=== PATIENT | male | born 1945 | race Caucasian/White ===

== ENCOUNTER 2016-06-13 12:15 | Observation (INO) ==
[2016-06-13] MEDS ORDERED: Ipratropium/Albuterol Neb 3 ML IH ONE ×2 (12:32→13:54)
[2016-06-13] MEDS ORDERED: Albuterol 2.5 MG/3 ML NEBULIZER IH ONE ×2 (12:32→13:54)
--- NOTE | 2016-06-13 12:36 | Emergency Department Note ---
Disposition Clinical Impression: COPD exacerbation Pneumonia Qualifiers: Pneumonia type: due to Haemophilus influenzae Laterality: right Lung location: lower lobe of lung Qualified Code(s): J14 - Pneumonia due to Hemophilus influenzae Disposition: Admitted As Inpatient Condition: Fair Referrals: Osvaldo Khanna MD [Primary Care Provider] - Time of Disposition: 15:51 SOB HPI - General Time Seen by Provider: 06/13/16 12:20 Source: EMS Mode of arrival: EMS Limitations: altered mental status Nursing Notes Reviewed: Yes Vital Signs Reviewed: Yes - History of Present Illness 71-year-old white male [facility] from the [facility] with sudden onset increased difficulty breathing. No reported fever. No reported chest pain. His O2 saturations were in the 50s in route on BiPAP. The patient is unable to provide any additional history. No additional history was available from the [facility] or EMS. He was given a DuoNeb in route. Pt Subjective Complaint: shortness of breath Onset (ago): Just FACILITY EXAMINER Context: other (History of end-stage COPD) Severity: severe Consistency/Duration: constant Improves with: nothing Worsens with: lying flat Known history of: COPD Associated symptoms: Reports: denies other symptoms Treatment prior to arrival: oxygen, bronchodilator, other (BiPAP) Cough present: No - Related Data Home Medications Medication Instructions Recorded Confirmed Acetaminophen [Tylenol] 325 mg PO Q4HR PRN 02/27/16 06/09/16 Albuterol Sulfate [Proair Hfa] 1 puff IH Q4H 02/27/16 06/09/16 Rivaroxaban [Xarelto] 15 mg PO DAILY 02/27/16 06/09/16 Sertraline [Zoloft] 100 mg PO DAILY 02/27/16 06/09/16 Tiotropium [Spiriva] 18 mcg IH DAILY 02/27/16 06/09/16 Albuterol Neb [Proventil Neb] 2.5 mg IH Q4HR PRN 04/18/16 06/09/16 Cholecalciferol (Vitamin D3) 1,000 unit PO DAILY 04/18/16 06/09/16 [Vitamin D3] Fluticasone/Salmeterol [Advair 1 each IH BID 04/18/16 06/09/16 500-50 Diskus] Magnesium Hydroxide [Milk of 30 ml PO DAILY PRN 04/18/16 06/09/16 Magnesia] Multivit-Min/FA/Lycopen/Lutein 1 each PO DAILY 04/18/16 06/09/16 [Adults 50+ Multivitamin Tablet] Previous Rx's Medication Instructions Recorded Alprazolam [Xanax 1 MG Tablet] 1.5 mg PO QID tablet 04/20/16 PredniSONE 10 mg PO BIDWM 3 Days 04/20/16 Metoprolol XL (24 HR) Succ [Toprol 25 mg PO DAILY 365 Days 06/09/16 Xl] Allergies Allergy/AdvReac Type Severity Reaction Status Date / Time Penicillins [PCN] Allergy Anaphylaxis Verified 06/07/16 15:17 Limitations: ROS unobtainable due to patients medical condition (Patient on BiPAP, severely dyspneic with altered mentation.) Past Medical History - Past Medical History Medical history: Reports: atrial fibrillation, CHF, COPD, GERD, hyperlipidemia, hypertension, other Surgical history: Reports: tracheostomy (And reversal) Psychiatric history: Reports: anxiety - Social History Smoking Status: Former smoker Smokeless Tobacco Status: No Alcohol use: Reports: none Drug use: Reports: none Physical Exam - General Limitations: altered mental status General appearance: in distress (Severe respiratory distress) - Head Head exam: atraumatic, normocephalic - Eye Eye exam: Present: PERRL, EOMI. Absent: scleral icterus, conjunctival injection - ENT ENT exam: normal oropharynx, mucous membranes moist - Neck Neck exam: Present: normal inspection, full ROM, trachea midline, other (JVD). Absent: lymphadenopathy - Chest Chest inspection: Present: normal inspection, symmetric chest wall rise - Respiratory Respiratory exam: Present: respiratory distress, wheezes (Severe bilateral expiratory diffuse), accessory muscle use, prolonged expiratory phase - Cardiovascular Cardiovascular exam: Present: normal rhythm, tachycardia. Absent: systolic murmur, diastolic murmur, gallop - Abdominal Exam Abdominal exam: Present: soft, Non-Tender. Absent: organomegaly, mass - Extremities Exam Extremities exam: Present: normal inspection. Absent: pedal edema - Neurological Exam Neurological exam: Present: other (Lethargic but arousable. All extremities spontaneously.) - Psychiatric Psychiatric exam: Present: agitated, anxious - Skin Skin exam: Present: warm, dry Course - Reevaluation(s) Reevaluation #1: Improved. He is actually on nasal cannula not on his BiPAP at the moment. He is tachypneic and tachycardic, but his O2 saturations are in the low 90s. I think he would benefit from being back on the BiPAP. Additional hand-held nebulizers have been ordered. He will require admission. Time: 14:00 Reevaluation #2: Since being placed on BiPAP his heart rate is down in the 120s. He is resting more comfortably, still to Neck. He is moving air somewhat better. Time: 15:20 Reevaluation #3: Acceptted by Dr. Khanna for admission. Time: 15:49 Vital Signs Respiratory Rate 34 06/13/16 12:56 O2 Sat by Pulse Oximetry 43 L 06/13/16 12:56 Temperature 100.4 F H 06/13/16 14:15 Pulse Rate 133 06/13/16 14:15 Respiratory Rate 28 06/13/16 14:15 Blood Pressure 192/72 06/13/16 14:15 O2 Sat by Pulse Oximetry 96 06/13/16 14:15 Oxygen Delivery Oxygen Delivery Nasal Cannula Shortness of Breath/Dyspnea - Differential Diagnosis Likely: acute exacerbation of chronic obstructive airways disease, congestive heart failure, pneumonia, asthma with exacerbation, pulmonary embolism, pneumothorax, arrhythmia - Lab Data Result diagrams: 06/13/16 12:30 06/13/16 12:30 Lab Results 06/13/16 06/13/16 06/13/16 Range/Units 12:30 12:30 12:30 WBC 17.3 H D (4.3-11.1) K/mcL RBC 3.94 L (4.19-5.50) M/mcL Hgb 11.3 L (12.9-16.9) g/dL Hct 37.6 (37.5-50.1) % MCV 95.4 (83.0-100.0) fL MCH 28.7 (28.0-33.3) pg MCHC 30.1 L (31.6-35.5) g/dL RDW 13.9 (11.5-14.5) % Plt Count 290 (140-400) K/mcL MPV 8.7 L (9.4-12.4) fL Immature Gran % 0.7 (0-4) % Seg Neutrophils % 72.9 % Lymphocytes % 17.3 % Monocytes % 8.4 % Eosinophils % 0.5 % Basophils % 0.2 % Neutrophils # 12.6 H (1.6-8.9) K/mcL Lymphocytes # 3.0 (0.6-4.6) K/mcL Monocytes # 1.5 H (0.0-1.3) K/mcL Eosinophils # 0.1 (0.0-0.6) K/mcL Basophils # 0.0 (0.0-0.2) K/mcL Nucleated RBCs/100 WBC 0.1 H (0) /100 WBC ABG pH (7.32-7.45) pH Units ABG pCO2 (35-45) mmHg ABG pO2 (85-104) mmHg ABG HCO3 (21-27) mEQ/L ABG Total CO2 (20-26) mEq/L ABG O2 Saturation (95-98) % ABG Base Excess (-2.0 to 3.0) mEq/L Respiration Rate Liter Flow L/MIN Blood Gas Modality Inspired O2 % Sodium 143 (136-145) mEq/L Potassium 4.8 H (3.5-4.5) mEq/L Chloride 92 L (98-109) mEq/L Carbon Dioxide 40 H* (19-29) mEq/L BUN 23 (8-26) mg/dL Creatinine 0.90 (0.72-1.25) mg/dL Est GFR ( Amer) > 60 (> 60) Est GFR (Non-Af Amer) > 60 (> 60) BUN/Creatinine Ratio 26 (6-26) Glucose 186 H (70-99) mg/dL Calculated Osmolality 305 H (280-300) Calcium 9.8 (8.6-10.8) mg/dL Total Bilirubin 0.5 (0.2-1.2) mg/dL AST 17 (5-34) Units/L ALT 24 (0-55) Units/L Alkaline Phosphatase 42 (38-126) Units/L Troponin I 0.02 (0-0.03) ng/mL B-Natriuretic Peptide (0-100) pg/mL Serum Total Protein 7.0 (6.0-8.3) g/dL Albumin 3.4 L (3.5-5.0) g/dL Globulin 3.6 H (2.4-3.5) g/dL Albumin/Globulin Ratio 0.9 L (1.1-2.2) 06/13/16 06/13/16 Range/Units 12:30 12:32 WBC (4.3-11.1) K/mcL RBC (4.19-5.50) M/mcL Hgb (12.9-16.9) g/dL Hct (37.5-50.1) % MCV (83.0-100.0) fL MCH (28.0-33.3) pg MCHC (31.6-35.5) g/dL RDW (11.5-14.5) % Plt Count (140-400) K/mcL MPV (9.4-12.4) fL Immature Gran % (0-4) % Seg Neutrophils % % Lymphocytes % % Monocytes % % Eosinophils % % Basophils % % Neutrophils # (1.6-8.9) K/mcL Lymphocytes # (0.6-4.6) K/mcL Monocytes # (0.0-1.3) K/mcL Eosinophils # (0.0-0.6) K/mcL Basophils # (0.0-0.2) K/mcL Nucleated RBCs/100 WBC (0) /100 WBC ABG pH 7.24 L (7.32-7.45) pH Units ABG pCO2 97 H* (35-45) mmHg ABG pO2 31 L* (85-104) mmHg ABG HCO3 41.3 H (21-27) mEQ/L ABG Total CO2 44.3 H (20-26) mEq/L ABG O2 Saturation 45 L (95-98) % ABG Base Excess -2.0 (-2.0 to 3.0) mEq/L Respiration Rate 26 Liter Flow 15 L/MIN Blood Gas Modality Squad BiPAP Inspired O2 100 % Sodium (136-145) mEq/L Potassium (3.5-4.5) mEq/L Chloride (98-109) mEq/L Carbon Dioxide (19-29) mEq/L BUN (8-26) mg/dL Creatinine (0.72-1.25) mg/dL Est GFR ( Amer) (> 60) Est GFR (Non-Af Amer) (> 60) BUN/Creatinine Ratio (6-26) Glucose (70-99) mg/dL Calculated Osmolality (280-300) Calcium (8.6-10.8) mg/dL Total Bilirubin (0.2-1.2) mg/dL AST (5-34) Units/L ALT (0-55) Units/L Alkaline Phosphatase (38-126) Units/L Troponin I (0-0.03) ng/mL B-Natriuretic Peptide 118 H (0-100) pg/mL Serum Total Protein (6.0-8.3) g/dL Albumin (3.5-5.0) g/dL Globulin (2.4-3.5) g/dL Albumin/Globulin Ratio (1.1-2.2) Critical Care Time Critical Care Time: Yes Total Critical Care Time: 30 Attestation: Critical care time includes my initial evaluation, multiple reassessments, review of laboratory, EKG, x-ray, and consultation with the hospitalist for admission. It does not include any procedure time.
[2016-06-13 12:39] LABS: Basophils % 0.2 %; Eosinophils # 0.1 K/mcL (0.0-0.6); Eosinophils % 0.5 %; Hematocrit 37.6 % (37.5-50.1); Hemoglobin 11.3 g/dL (12.9-16.9); Immature Granulocytes % 0.7 % (0-4); Lymphocytes % 17.3 %; Mean Corpuscular HGB Conc 30.1 g/dL (31.6-35.5); Mean Corpuscular Hemoglobin 28.7 pg (28.0-33.3); Mean Corpuscular Volume 95.4 fL (83.0-100.0); Mean Platelet Volume 8.7 fL (9.4-12.4); Monocytes # 1.5 K/mcL (0.0-1.3); Monocytes % 8.4 %; Neutrophils # 12.6 K/mcL (1.6-8.9); Nucleated Red Blood Cells 0.1 /100 WBC (0); Platelet Count 290 K/mcL (140-400); Red Blood Count 3.94 M/mcL (4.19-5.50); Red Cell Distribution Width 13.9 % (11.5-14.5); Segmented Neutrophils % 72.9 %
[2016-06-13 12:51] LABS: ABG PCO2 97 mmHg (35-45); ABG PH 7.24 pH Units (7.32-7.45)
[2016-06-13 12:52] LABS: ABG HCO3 41.3 mEQ/L (21-27); ABG Oxygen Saturation 45 % (95-98); ABG PO2 31 mmHg (85-104); ABG TCO2 44.3 mEq/L (20-26); Blood Gas FiO2 100 %; Blood Gas Liter Flow 15 L/MIN
[2016-06-13 12:53] LABS: Blood Gas Respiration Rate 26
[2016-06-13 12:54] LABS: Alanine Aminotransferase 24 Units/L (0-55); Albumin 3.4 g/dL (3.5-5.0); Albumin/Globulin Ratio 0.9 (1.1-2.2); Alkaline Phosphatase 42 Units/L (38-126); Aspartate Amino Transferase 17 Units/L (5-34); BUN/Creatinine Ratio 26 (6-26); Bilirubin,Total 0.5 mg/dL (0.2-1.2); Blood Urea Nitrogen 23 mg/dL (8-26); Calcium 9.8 mg/dL (8.6-10.8); Chloride 92 mEq/L (98-109); Globulin 3.6 g/dL (2.4-3.5); Glucose 186 mg/dL (70-99); Osmolality,Calculated 305 (280-300); Potassium 4.8 mEq/L (3.5-4.5); Sodium 143 mEq/L (136-145); eGFR For African Americans > 60 (> 60); eGFR For Non-African Americans > 60 (> 60)
[2016-06-13 12:56] LABS: Carbon Dioxide 40 mEq/L (19-29)
[2016-06-13] MEDS ORDERED: Vancomycin 1,000 MG in D5% in Water 250 ML IVPB ONE (13:49)
[2016-06-13] MEDS ORDERED: Levofloxacin 500 MG/100 ML 500 MG/100 ML BAG IVPB ONE (13:49)
--- NOTE | 2016-06-13 14:35 | Electrocardiograph Report ---
Nat Cardiology Test Date: 2016-06-13 Pat Name: Joesph Ramirez Department: [id number] Room: Gender: M Digitizer Operator: [id number] : 1945 Requested By: Tiago Diaz Order Number: [id number] Reading MD: Constantino Starkey DO Measurements Intervals [place] Rate: 139 P: 81 UT: 145 QRS: 78 QRSD: 82 T: 90 QT: 329 QTc: 410 Interpretive Statements Sinus tachycardia with PACs Nonspecific ST-T changes Electronically Signed On 06-13-16 14:34:06 EST by Constantino Starkey DO
[2016-06-13] MEDS ORDERED: Naloxone 0.4 MG/ML INJ IVP PRN (18:53)
[2016-06-13] MEDS ORDERED: Vancomycin 1,250 MG in D5% in Water 250 ML IVPB SCH (18:53)
[2016-06-13] MEDS ORDERED: MethylPREDNISolone 40 MG/ML VIAL IVP ONE (18:53)
[2016-06-13] MEDS: Ipratropium/Albuterol Neb 3 ML IH SCH (19:47)
[2016-06-13] MEDS ORDERED: *HR* LORazepam Oral Conc 2 MG/ML SL PRN (22:38)
[2016-06-13] MEDS ORDERED: Acetaminophen 325 MG TABLET PO PRN (23:14)
[2016-06-13] MEDS ORDERED: Albuterol 2.5 MG/3 ML NEBULIZER IH PRN ×2 (23:14→23:40)
[2016-06-13] MEDS ORDERED: MOM Conc 10 ML UD.LIQ PO PRN (23:14)
[2016-06-13] MEDS: Albuterol 2.5 MG/3 ML NEBULIZER IH SCH (23:46)
[2016-06-14] MEDS: Ipratropium/Albuterol Neb 3 ML IH SCH (00:24)
[2016-06-14] MEDS: Albuterol 2.5 MG/3 ML NEBULIZER IH SCH ×6 (03:52→23:42)
[2016-06-14] MEDS ORDERED: Vancomycin 1,000 MG in D5% in Water 250 ML IVPB ONE (04:00)
[2016-06-14] MEDS: Tiotropium 18 MCG inhalation IH SCH (08:30)
[2016-06-14] MEDS: Budesonide/Formoterol 160/4.5 MDI IH SCH ×2 (08:39→20:49)
[2016-06-14] MEDS ORDERED: Metoprolol XL (24 HR) Succ 25 MG TAB.ER.24H PO SCH ×2 (09:00→15:24)
[2016-06-14] MEDS ORDERED: Levofloxacin 500 MG/100 ML 500 MG/100 ML BAG IVPB SCH (09:00)
[2016-06-14] MEDS: Cholecalciferol (D-3) 1,000 UNIT TABLET PO SCH (09:43)
[2016-06-14] MEDS: Doxycycline 100 MG CAPSULE PO SCH ×2 (09:44→20:15)
[2016-06-14] MEDS: *HR* Rivaroxaban 15 MG TABLET PO SCH (09:44)
[2016-06-14] MEDS: PredniSONE 10 MG TABLET PO SCH ×2 (09:44→18:08)
[2016-06-14] MEDS: Morphine Oral CONC 5 MG/0.25 ML ORAL.SYG PO PRN ×2 (09:53→18:26)
[2016-06-14] MEDS ORDERED: Multivit/Ca/Min/Fe/FA 1 TAB TABLET PO SCH (15:00)
--- NOTE | 2016-06-14 15:11 | Internal Med History&Physical ---
Date of Encounter: 06/14/16 Time of Encounter: 15:40 Assessment and Plan (1) Pneumonia Current visit: Yes Status: Acute He was started on IV Levaquin and vancomycin in the emergency room. IV access has been loss of he has been changed to oral Levaquin and doxycycline. I will add lactobacillus. Prednisone and other respiratory regimen will be continued as at [facility]. He states he wishes to revoke hospice and return to a full CODE STATUS including intubation if necessary. Qualifiers: Pneumonia type: due to unspecified organism Laterality: right Lung location: lower lobe of lung Qualified Code(s): J18.9 - Pneumonia, unspecified organism (2) Atrial fibrillation Current visit: No Status: Chronic Continue Xarelto and metoprolol XL. He remains in normal sinus rhythm at this time Qualifiers: Atrial fibrillation type: paroxysmal Qualified Code(s): I48.0 - Paroxysmal atrial fibrillation (3) Anemia Current visit: No Status: Chronic Anemia testing April 2016 showed no factor deficiency. We will monitor CBC as needed Qualifiers: Anemia type: unspecified type Qualified Code(s): D64.9 - Anemia, unspecified (4) Anxiety Current visit: No Status: Chronic Continue scheduled Xanax Internal Medicine - H&P: HPI Chief complaint: dyspnea Admitted From: Long-term Nursing Facility Plans for Post Hospital Care: Transfer Senior [facility] Facility History of present illness: Mr. Ramirez is a 71 year old male who came to the hospital with complaints of worsening dyspnea at the [facility] over the preceding few days. He was evaluated in emergency room and felt to have exacerbation of COPD with right lower lobe pneumonia. He was admitted to [facility] for ongoing care needs. He was hospitalized at [facility] approximately one week ago with similar complaints. He has known severe COPD and wears oxygen 24/7 at the [facility]. He smoked from age [age] up to 5 packs per day. He had a tracheostomy from [id number] but it has been removed and he now wears oxygen by nasal cannula. He has a BiPAP machine at the [facility] for scheduled and prn use for his severe COPD. He has been seen by a pulmonologists at [facility] but is not considered a candidate for lung reduction surgery or endobronchial valves etc. His last chest CT was October 2014. Past Med Surg Social Fam HX - Past Medical History Medical history: atrial fibrillation, CHF, COPD, GERD, hyperlipidemia, hypertension, other Psychiatric history: anxiety - Past Surgical History Surgical History: tracheostomy - Social History Smoking Status: Former smoker Smokeless Tobacco Status: No Alcohol use: none Drug use: none - Family History Father Adopted: [place]: Joesph Ramirez Family Member Ethnicity: Non- Living Status: Cause of : cerebral hemmorahage Hx Family Cardiac Disorders: No Hx Family Respiratory Disorders: No Hx Family Cancer: No Hx Family GI Disorders: No Hx Family Genitourinary Disorders: No Hx Family Endocrine Disorder: No Hx Family Musculoskeletal Disorders: Yes Hx Family Neuromuscular Disorders: No Hx Family Neurologic Disorders: No Hx Family HEENT Disorders: No Hx Family Autoimmune Disorders: No Hx Family Reproductive Disorders: No Hx Family Psychosocial Disorders: No Hx Family Medical Disorders: No Internal Medicine - H&P: Meds Acetaminophen [Tylenol] 325 mg PO Q4HR PRN 02/27/16 [History] Albuterol Sulfate [Proair Hfa] 1 puff IH Q4H 02/27/16 [History] Rivaroxaban [Xarelto] 15 mg PO DAILY 02/27/16 [History] Sertraline [Zoloft] 100 mg PO DAILY 02/27/16 [History] Tiotropium [Spiriva] 18 mcg IH DAILY 02/27/16 [History] Albuterol Neb [Proventil Neb] 2.5 mg IH Q4HR PRN 04/18/16 [History] Cholecalciferol (Vitamin D3) [Vitamin D3] 1,000 unit PO DAILY 04/18/16 [History] Fluticasone/Salmeterol [Advair 500-50 Diskus] 1 each IH BID 04/18/16 [History] Magnesium Hydroxide [Milk of Magnesia] 30 ml PO DAILY PRN 04/18/16 [History] Multivit-Min/FA/Lycopen/Lutein [Adults 50+ Multivitamin Tablet] 1 each PO DAILY 04/18/16 [History] Alprazolam [Xanax 1 MG Tablet] 1.5 mg PO QID tablet 04/20/16 [Rx] PredniSONE 10 mg PO BIDWM 3 Days 04/20/16 [Rx] Metoprolol XL (24 HR) Succ [Toprol Xl] 25 mg PO DAILY 365 Days 06/09/16 [Rx] Allergies Penicillins [PCN] Allergy (Verified 06/07/16 15:17) Anaphylaxis All Systems PM: A 10-system review of systems was performed and is negative for pertinent findings except as documented above in the HPI. Review of systems: Review of systems from his 06/08/2016 H&P were reviewed and revised as below. Gen. his weight has increased from 65.317 kg at the October 2014 hospitalization to 77.111 kg now Cardiovascular: He has history of hypertension, heart failure, and paroxysmal atrial fibrillation. There is no known [place] DVT or pulmonary embolus. Respiratory: As per history of present illness GI: He has no known disorders of his liver gallbladder or exocrine pancreas : No history of hematuria dysuria or kidney stones Neurologic: No history of large distribution strokes or seizures Endocrine: He has hypogonadism but is not receiving treatment at this time. He has hyperlipidemia but no known thyroid disease or diabetes Hematology/oncology: He had anemia documented at the October 2014 hospitalization with workup showing no factor deficiency. He has no known internal malignancies Psychiatric: He has anxiety and depression Musk skeletal: He has DJD and osteopenia but no known gout. - Constitutional Vitals: Temp Pulse Resp BP Pulse Ox 97.6 F 89 22 131/64 95 06/14/16 10:57 06/14/16 09:20 06/14/16 12:30 06/14/16 10:57 06/14/16 12:30 Exam: Gen.: He is a well-developed overweight male who appears in mild to moderate respiratory distress at present time HEENT: Head is atraumatic and normocephalic. Eyes: EOMI. There is no scleral icterus. Mouth: Mucosa is moist. Neck: Supple and nontender. There is no thyromegaly or adenopathy noted. Heart: Regular without murmurs gallops or ectopics. Lungs: He has markedly diminished breath sounds. Very little air flow is heard bilaterally. Abdomen: Soft and nontender. No masses or guarding are noted. Extremities: There is no cyanosis edema or clubbing noted. Dorsalis pedis and posttibial pulses are trace palpable bilaterally. He has mild DJD changes of his hands. Neurologic: Mental status: He is talkative and a good historian. Cranial nerves : Smile is symmetric. Forehead wrinkles bilaterally. Tongue protrudes midline. EOMI. Motor: There is no pronator drift. Cerebellar: Finger to nose intact bilaterally. Skin: Warm and dry Internal Med - H&P Results - Labs CBC & Chem 7: 06/13/16 12:30 06/13/16 12:30
[2016-06-14] MEDS: Lactobacillus 1 EACH CAP.SPRINK PO SCH (20:15)
[2016-06-15] MEDS: Albuterol 2.5 MG/3 ML NEBULIZER IH SCH ×2 (03:58→09:28)
[2016-06-15 06:22] VITALS: BP 165/73
[2016-06-15 08:57] LABS: Eosinophils % 0.1 %; Hematocrit 33.4 % (37.5-50.1); Hemoglobin 10.6 g/dL (12.9-16.9); Immature Granulocytes % 0.9 % (0-4); Lymphocytes # 0.9 K/mcL (0.6-4.6); Lymphocytes % 9.7 %; Mean Corpuscular HGB Conc 31.7 g/dL (31.6-35.5); Mean Corpuscular Volume 91.5 fL (83.0-100.0); Mean Platelet Volume 9.2 fL (9.4-12.4); Monocytes # 0.7 K/mcL (0.0-1.3); Monocytes % 8.3 %; Neutrophils # 7.2 K/mcL (1.6-8.9); Platelet Count 242 K/mcL (140-400); Red Blood Count 3.65 M/mcL (4.19-5.50); Red Cell Distribution Width 13.6 % (11.5-14.5)
[2016-06-15] MEDS: PredniSONE 10 MG TABLET PO SCH (09:09)
[2016-06-15] MEDS: Lactobacillus 1 EACH CAP.SPRINK PO SCH (09:09)
[2016-06-15] MEDS: Doxycycline 100 MG CAPSULE PO SCH (09:10)
[2016-06-15] MEDS: *HR* Rivaroxaban 15 MG TABLET PO SCH (09:10)
[2016-06-15] MEDS: Cholecalciferol (D-3) 1,000 UNIT TABLET PO SCH (09:10)
[2016-06-15] MEDS: Budesonide/Formoterol 160/4.5 MDI IH SCH (09:29)
[2016-06-15] MEDS: Morphine Oral CONC 5 MG/0.25 ML ORAL.SYG PO PRN (09:35)
--- NOTE | 2016-06-15 09:44 | Discharge Summary ---
Date of Encounter: 06/15/16 Time of Encounter: 09:30 - Discharge Diagnosis (1) Pneumonia Priority: Primary Status: Acute Qualifiers: Pneumonia type: due to unspecified organism Laterality: right Lung location: lower lobe of lung Qualified Code(s): J18.9 - Pneumonia, unspecified organism (2) Atrial fibrillation Priority: Secondary Status: Chronic Qualifiers: Atrial fibrillation type: paroxysmal Qualified Code(s): I48.0 - Paroxysmal atrial fibrillation (3) Anemia Priority: Secondary Status: Chronic Qualifiers: Anemia type: unspecified type Qualified Code(s): D64.9 - Anemia, unspecified (4) Anxiety Priority: Secondary Status: Chronic - Discharge Medications Prescriptions: LORazepam Oral Conc [Ativan Oral Conc] 1 mg SL Q2HR PRN #240 mls PRN Reason: Anxiety Morphine Oral CONC [Roxanol] 10 mg PO Q2HR PRN #240 oral.syg PRN Reason: Pain Doxycycline 100 mg PO BID 3 Days Lactobacillus [Culturelle] 1 each PO BID 3 Days Levofloxacin [Levaquin] 500 mg PO DAILY 3 Days Home Medications: Acetaminophen [Tylenol] 325 mg PO Q4HR PRN 02/27/16 [History] Albuterol Sulfate [Proair Hfa] 1 puff IH Q4H 02/27/16 [History] Rivaroxaban [Xarelto] 15 mg PO DAILY 02/27/16 [History] Sertraline [Zoloft] 100 mg PO DAILY 02/27/16 [History] Tiotropium [Spiriva] 18 mcg IH DAILY 02/27/16 [History] Albuterol Neb [Proventil Neb] 2.5 mg IH Q4HR PRN 04/18/16 [History] Cholecalciferol (Vitamin D3) [Vitamin D3] 1,000 unit PO DAILY 04/18/16 [History] Fluticasone/Salmeterol [Advair 500-50 Diskus] 1 each IH BID 04/18/16 [History] Magnesium Hydroxide [Milk of Magnesia] 30 ml PO DAILY PRN 04/18/16 [History] Multivit-Min/FA/Lycopen/Lutein [Adults 50+ Multivitamin Tablet] 1 each PO DAILY 04/18/16 [History] Alprazolam [Xanax 1 MG Tablet] 1.5 mg PO QID tablet 04/20/16 [Rx] PredniSONE 10 mg PO BIDWM 3 Days 04/20/16 [Rx] Metoprolol XL (24 HR) Succ [Toprol Xl] 25 mg PO DAILY 365 Days 06/09/16 [Rx] Doxycycline 100 mg PO BID 3 Days 06/15/16 [Rx] LORazepam Oral Conc [Ativan Oral Conc] 1 mg SL Q2HR PRN #240 mls 06/15/16 [Rx] Lactobacillus [Culturelle] 1 each PO BID 3 Days 06/15/16 [Rx] Levofloxacin [Levaquin] 500 mg PO DAILY 3 Days 06/15/16 [Rx] Montelukast [Singulair] 10 mg PO DAILY #0 tablet 06/15/16 [Rx] Morphine Oral CONC [Roxanol] 10 mg PO Q2HR PRN #240 oral.syg 06/15/16 [Rx] Allergies/Adverse Reactions: Allergies Penicillins [PCN] Allergy (Verified 06/07/16 15:17) Anaphylaxis Date of admission: 06/13/16 19:06 Primary care physician: Osvaldo Khanna MD - Patient Status Disposition: Transfer SNF Condition: Fair Overall status at discharge: patient is progressing back to baseline - Discharge Instructions Forms: ED Satisfaction Letter - Diet and Activity Activity: resume usual activities as tolerated Diet: advance to your usual diet Hospital course: Mr. Ramirez is a 71 year old male who came to the hospital with complaints of worsening dyspnea at the detention over the preceding few days. He was evaluated in emergency room and felt to have exacerbation of COPD with right lower lobe pneumonia. He was admitted to [facility] for ongoing care needs. Initial orders were written by the emergency room physician. I saw him on June 14 and performed a history and physical. He was started on IV Levaquin and vancomycin in the emergency room. IV access was lost after a few hours and multiple unsuccessful attempts were made to restart the IV. He was changed to oral Levaquin and doxycycline. Lactobacillus was added. Vital signs remained stable and he remained afebrile the last 24 hours of hospitalization. WBC improved to 8.8 on June 15 with 81% segs present. When I saw him on June 15 I felt he was stable for discharge back to [facility] for ongoing care needs. Adjustments were made in his Trilogy machine at the detention for BiPAP use. He will follow with me at [facility]. He will continue with antibiotic and probiotic for 3 additional days after discharge for the right lower lobe pneumonia. - Time Spent with Patient Total time spent providing and/or coordinating discharge services: - Constitutional Vitals: Temp Pulse Resp BP Pulse Ox 98.1 F 83 20 165/73 94 L 06/15/16 06:21 06/15/16 06:21 06/15/16 06:21 06/15/16 06:21 06/15/16 06:21
[2016-06-15] MEDS: Tiotropium 18 MCG inhalation IH SCH (09:50)
--- NOTE | 2016-06-15 09:51 | Physician Discharge Referral ---
ExtendedCare Referral Info Transfer To: [facility] Provider in Charge: Jey Provider in Charge after Transfer: PCP (Jey) - Diagnosis (1) Pneumonia Priority: Primary Status: Acute (2) Atrial fibrillation Priority: Secondary Status: Chronic (3) Anemia Priority: Secondary Status: Chronic (4) Anxiety Priority: Secondary Status: Chronic Prognosis: Fair Aware of Diagnosis: Patient Aware of Prognosis: Patient - Transfer Medications Prescriptions: LORazepam Oral Conc [Ativan Oral Conc] 1 mg SL Q2HR PRN #240 mls PRN Reason: Anxiety Morphine Oral CONC [Roxanol] 10 mg PO Q2HR PRN #240 oral.syg PRN Reason: Pain Doxycycline 100 mg PO BID 3 Days Lactobacillus [Culturelle] 1 each PO BID 3 Days Levofloxacin [Levaquin] 500 mg PO DAILY 3 Days Home Medications: Acetaminophen [Tylenol] 325 mg PO Q4HR PRN 02/27/16 [History] Albuterol Sulfate [Proair Hfa] 1 puff IH Q4H 02/27/16 [History] Rivaroxaban [Xarelto] 15 mg PO DAILY 02/27/16 [History] Sertraline [Zoloft] 100 mg PO DAILY 02/27/16 [History] Tiotropium [Spiriva] 18 mcg IH DAILY 02/27/16 [History] Albuterol Neb [Proventil Neb] 2.5 mg IH Q4HR PRN 04/18/16 [History] Cholecalciferol (Vitamin D3) [Vitamin D3] 1,000 unit PO DAILY 04/18/16 [History] Fluticasone/Salmeterol [Advair 500-50 Diskus] 1 each IH BID 04/18/16 [History] Magnesium Hydroxide [Milk of Magnesia] 30 ml PO DAILY PRN 04/18/16 [History] Multivit-Min/FA/Lycopen/Lutein [Adults 50+ Multivitamin Tablet] 1 each PO DAILY 04/18/16 [History] Alprazolam [Xanax 1 MG Tablet] 1.5 mg PO QID tablet 04/20/16 [Rx] PredniSONE 10 mg PO BIDWM 3 Days 04/20/16 [Rx] Metoprolol XL (24 HR) Succ [Toprol Xl] 25 mg PO DAILY 365 Days 06/09/16 [Rx] Doxycycline 100 mg PO BID 3 Days 01/06/17 [Rx] LORazepam Oral Conc [Ativan Oral Conc] 1 mg SL Q2HR PRN #240 mls 06/15/16 [Rx] Lactobacillus [Culturelle] 1 each PO BID 3 Days 06/15/16 [Rx] Levofloxacin [Levaquin] 500 mg PO DAILY 3 Days 06/15/16 [Rx] Montelukast [Singulair] 10 mg PO DAILY #0 tablet 06/15/16 [Rx] Morphine Oral CONC [Roxanol] 10 mg PO Q2HR PRN #240 oral.syg 06/15/16 [Rx] Allergies/Adverse Reactions: Allergies Penicillins [PCN] Allergy (Verified 06/07/16 15:17) Anaphylaxis - Respiratory Orders Oxygen / L per min (O2 at 5-7 L/m by cannula with use of Trilogy as needed) Smoking Cessation: Smoking cessation has been advised. For more information, call the [employer] Tobacco Quit Line at 3-967-PGOT-NOW. - Advance Directives Code Status: Full Code - Rehabiliation Orders Rehab Potential: Fair CERTIFICATION: I certify that the transfer of the above named patient to an Extended Care Facility is necessary for the continuing treatment of the diagnosis listed. The above information is true and accurate reflection of patient's current condition. Confidential - Redisclosure prohibited without a patient's written consent.
[2016-06-15] MEDS ORDERED: Multivit/Ca/Min/Fe/FA 1 TAB TABLET PO SCH (11:00)
== END 2016-06-15 11:00 ==
LOC: INPPIK 12:28 → EMEROOPIK 12:28 → INPPIK 19:10
PROVIDERS: ADMIT Internal Medicine; ATTEND Internal Medicine

== ENCOUNTER 2016-07-17 06:13 | Inpatient (IN) ==
--- NOTE | 2016-07-17 06:19 | Emergency Department Note ---
Disposition Clinical Impression: Acute exacerbation of chronic obstructive airways disease Acute and chronic respiratory failure Qualifiers: Respiratory failure complication: hypoxia and hypercapnia Qualified Code(s): J96.21 - Acute and chronic respiratory failure with hypoxia Disposition: Admitted As Inpatient Referrals: NO,PCP [Non-Partnered Physician] - Forms: ED Satisfaction Letter SOB HPI - General Chief Complaint: ED Shortness of Breath/Dyspnea Stated Complaint: DIFFICULTY BREATHING Time Seen by Provider: 07/17/16 06:19 Source: patient, EMS Mode of arrival: EMS Limitations: no limitations Nursing Notes Reviewed: Yes Vital Signs Reviewed: Yes - History of Present Illness Patient presents from care home where he is chronically dependent on a Trilogy BiPAP machine for assisted ventilation. He reportedly was oxygenating in the 90-95% range yesterday evening but this morning was found to be desaturated to the 50s and 60s. The squad was called and they have brought him in with assisted ventilation by bag valve mask. He had requested intubation at the care home and has still been conversive. He has had a low-grade fever and occasional cough. His denied any localizing chest pain and he has not been having sputum production. He has not been having vomiting, diarrhea, leg pain or swelling. He is on Xarelto and has been receiving his usual medicines. He is feeling much more comfortable on arrival here with assisted ventilation. His saturations are back up in the 90s, he is demonstrating good respiratory effort he is hypertensive and tachycardic. 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 Denies: chest pain, pain with inspiration, sputum production, orthopnea, lower extremity pain, polyuria, polydipsia, parasthesias, palpitations, hemoptysis, diaphoresis, nausea/vomiting , syncope, abdominal pain, rash Treatment prior to arrival: oxygen, other Cough present: Yes Cough Description: Voluntary (Final) Cough Frequency: Intermittent Sputum production: No - Related Data Home oxygen amount: 4 liters Home Medications Medication Instructions Recorded Confirmed Acetaminophen [Tylenol] 325 mg PO Q4HR PRN 02/27/16 07/17/16 Albuterol Sulfate [Proair Hfa] 1 puff IH Q4H 02/27/16 07/17/16 Rivaroxaban [Xarelto] 15 mg PO DAILY 02/27/16 07/17/16 Sertraline [Zoloft] 100 mg PO DAILY 02/27/16 07/17/16 Tiotropium [Spiriva] 18 mcg IH DAILY 02/27/16 07/17/16 Albuterol Neb [Proventil Neb] 2.5 mg IH Q4HR PRN 04/18/16 07/17/16 Cholecalciferol (Vitamin D3) 1,000 unit PO DAILY 04/18/16 07/17/16 [Vitamin D3] Fluticasone/Salmeterol [Advair 1 each IH BID 04/18/16 07/17/16 500-50 Diskus] Magnesium Hydroxide [Milk of 30 ml PO DAILY PRN 04/18/16 07/17/16 Magnesia] Multivit-Min/FA/Lycopen/Lutein 1 each PO DAILY 04/18/16 07/17/16 [Adults 50+ Multivitamin Tablet] Haloperidol 0.5 mg PO Q2H PRN 07/17/16 07/17/16 Previous Rx's Medication Instructions Recorded Alprazolam [Xanax 1 MG Tablet] 1.5 mg PO QID tablet 04/20/16 PredniSONE 10 mg PO BIDWM 3 Days 04/20/16 Metoprolol XL (24 HR) Succ [Toprol 25 mg PO DAILY 365 Days 06/09/16 Xl] LORazepam Oral Conc [Ativan Oral 1 mg SL Q2HR PRN #240 mls 06/15/16 Conc] Montelukast [Singulair] 10 mg PO DAILY #0 tablet 06/15/16 Morphine Oral CONC [Roxanol] 10 mg PO Q2HR PRN #240 oral.syg 06/15/16 Allergies Allergy/AdvReac Type Severity Reaction Status Date / Time Penicillins [PCN] Allergy Anaphylaxis Verified 06/07/16 15:17 All systems ED: reviewed and negative except as stated. Past Medical History - Past Medical History Attestation: Yes The following information was validated with the patient. Source: patient, old records reviewed, nursing notes reviewed Medical history: Reports: atrial fibrillation (With anticoagulation), CHF, COPD (Chronic respiratory failure with prior hospice status, revoked), GERD, hyperlipidemia, hypertension, other. Denies: DVT, pulmonary embolus Surgical history: Reports: tracheostomy (And reversal) Psychiatric history: Reports: anxiety - Social History Smoking Status: Former smoker Smokeless Tobacco Status: No Alcohol use: Reports: none Drug use: Reports: none Physical Exam - General Limitations: physical limitation General appearance: alert, in distress - Head Head exam: atraumatic, normocephalic, normal inspection - Eye Eye exam: Present: normal appearance, EOMI - ENT ENT exam: normal exam, mucous membranes moist, mucous membranes dry - Neck Neck exam: Present: normal inspection, full ROM, trachea midline - Chest Chest inspection: Present: normal inspection, symmetric chest wall rise. Absent : tenderness - Respiratory Respiratory exam: Present: respiratory distress, wheezes, prolonged expiratory phase. Absent: stridor, accessory muscle use - Cardiovascular Cardiovascular exam: Present: regular rate, normal rhythm, tachycardia, normal heart sounds. Absent: JVD - Abdominal Exam Abdominal exam: Present: soft, Non-Tender, normal bowel sounds. Absent: tenderness, distention, guarding, rebound, rigidity - Extremities Exam Extremities exam: Present: normal inspection, full ROM, normal capillary refill. Absent: tenderness, pedal edema, calf tenderness - Expanded Lower Extremity Exam Neurovascular/Tendon exam: Present: normal capillary refill. Absent: motor deficit, sensory deficit, tendon deficit Gait: not tested/not observed - Neurological Exam Neurological exam: Present: alert. Absent: motor sensory deficit - Psychiatric Psychiatric exam: Present: normal affect, anxious - Skin Skin exam: Present: warm, dry, intact, normal color. Absent: diaphoresis, pallor Course Course Narrative: 0730: Patient's repeat blood gasses demonstrating that he is trending towards his normal ranges for his pH and CO2. Patient is alert, conversive and saturating at 97% on 70% FiO2 on the BiPAP at 20/8. We are continuing to titrate his oxygen down. Current blood pressure is 150/78. His heart rate remains at 130. However awaiting return of labs to discuss the patient's ultimate disposition with Dr. Khanna who knows this patient very well. 0735: Dr. Khanna feels comfortable on admitting the patient to this facility. Verbal orders are obtained and [facility] bed management has been contacted for bed placement. Vital Signs Temperature 100.5 F H 07/17/16 06:14 Pulse Rate 133 07/17/16 06:14 Respiratory Rate 28 07/17/16 06:14 Blood Pressure 173/96 07/17/16 06:14 O2 Sat by Pulse Oximetry 90 L 07/17/16 06:14 Temperature 100.5 F H 07/17/16 06:14 Pulse Rate 133 07/17/16 07:14 Respiratory Rate 24 07/17/16 07:14 Blood Pressure 119/71 07/17/16 07:14 O2 Sat by Pulse Oximetry 94 L 07/17/16 07:14 Oxygen Delivery Oxygen Delivery Bipap Shortness of Breath/Dyspnea - Differential Diagnosis Likely: acute exacerbation of chronic obstructive airways disease, pneumonia, asthma with exacerbation - Medical Records Medical records reviewed: Yes I reviewed the patient's medical records. - Lab Data Lab results reviewed: Yes I reviewed the patient's lab results. Lab results narrative: It appears the patient's normal CO2 is in a range from 60-100 and his pH is generally 7.23-7.3. Result diagrams: 07/17/16 07:05 07/17/16 07:05 Lab Results 07/17/16 07/17/16 07/17/16 Range/Units 06:22 07:05 07:05 WBC 10.2 (4.3-11.1) K/mcL RBC 4.04 L (4.19-5.50) M/mcL Hgb 11.7 L (12.9-16.9) g/dL Hct 39.0 (37.5-50.1) % MCV 96.5 (83.0-100.0) fL MCH 29.0 (28.0-33.3) pg MCHC 30.0 L (31.6-35.5) g/dL RDW 13.8 (11.5-14.5) % Plt Count 274 (140-400) K/mcL MPV 9.3 L (9.4-12.4) fL Immature Gran % 0.7 (0-4) % Seg Neutrophils % 83.3 % Lymphocytes % 12.8 % Monocytes % 2.4 % Eosinophils % 0.6 % Basophils % 0.2 % Neutrophils # 8.5 (1.6-8.9) K/mcL Lymphocytes # 1.3 (0.6-4.6) K/mcL Monocytes # 0.3 (0.0-1.3) K/mcL Eosinophils # 0.1 (0.0-0.6) K/mcL Basophils # 0.0 (0.0-0.2) K/mcL ABG pH 7.15 L* (7.32-7.45) pH Units ABG pCO2 132 H* (35-45) mmHg ABG pO2 89 (85-104) mmHg ABG HCO3 46.3 H (21-27) mEQ/L ABG Total CO2 50.4 H (20-26) mEq/L ABG O2 Saturation 92 L (95-98) % ABG Base Excess 12.3 H (-2.0 to 3.0) mEq/L VBG Lactic Acid (0.5-2.2) mmol/L Respiration Rate Liter Flow 10 L/MIN Blood Gas Modality AMBU Inspired O2 100 % Inspiratory BiPAP cm H2O Expiratory BiPAP cm H2O Sodium 145 (136-145) mEq/L Potassium 4.2 (3.5-4.5) mEq/L Chloride 95 L (98-109) mEq/L Carbon Dioxide 39 H (19-29) mEq/L BUN 26 (8-26) mg/dL Creatinine 0.83 (0.72-1.25) mg/dL Est GFR ( Amer) > 60 (> 60) Est GFR (Non-Af Amer) > 60 (> 60) BUN/Creatinine Ratio 31 H (6-26) Glucose 125 H (70-99) mg/dL Calculated Osmolality 306 H (280-300) Calcium 9.3 (8.6-10.8) mg/dL Troponin I (0-0.03) ng/mL 07/17/16 07/17/16 07/17/16 Range/Units 07:05 07:05 07:15 WBC (4.3-11.1) K/mcL RBC (4.19-5.50) M/mcL Hgb (12.9-16.9) g/dL Hct (37.5-50.1) % MCV (83.0-100.0) fL MCH (28.0-33.3) pg MCHC (31.6-35.5) g/dL RDW (11.5-14.5) % Plt Count (140-400) K/mcL MPV (9.4-12.4) fL Immature Gran % (0-4) % Seg Neutrophils % % Lymphocytes % % Monocytes % % Eosinophils % % Basophils % % Neutrophils # (1.6-8.9) K/mcL Lymphocytes # (0.6-4.6) K/mcL Monocytes # (0.0-1.3) K/mcL Eosinophils # (0.0-0.6) K/mcL Basophils # (0.0-0.2) K/mcL ABG pH 7.23 L (7.32-7.45) pH Units ABG pCO2 106 H* D (35-45) mmHg ABG pO2 104 (85-104) mmHg ABG HCO3 43.9 H (21-27) mEQ/L ABG Total CO2 47.2 H (20-26) mEq/L ABG O2 Saturation 96 (95-98) % ABG Base Excess 12.1 H (-2.0 to 3.0) mEq/L VBG Lactic Acid 1.8 (0.5-2.2) mmol/L Respiration Rate 12 Liter Flow L/MIN Blood Gas Modality BIPAP Inspired O2 100 % Inspiratory BiPAP 20 cm H2O Expiratory BiPAP 8 cm H2O Sodium (136-145) mEq/L Potassium (3.5-4.5) mEq/L Chloride (98-109) mEq/L Carbon Dioxide (19-29) mEq/L BUN (8-26) mg/dL Creatinine (0.72-1.25) mg/dL Est GFR ( Amer) (> 60) Est GFR (Non-Af Amer) (> 60) BUN/Creatinine Ratio (6-26) Glucose (70-99) mg/dL Calculated Osmolality (280-300) Calcium (8.6-10.8) mg/dL Troponin I 0.02 (0-0.03) ng/mL - Radiology Data Radiology results reviewed: Yes I reviewed the patient's radiology results. Single view chest x-ray is performed. This demonstrates hyperinflation and changes consistent with emphysema and COPD. He has some basilar scarring. No dominant infiltrate is noted. This is on my interpretation. Impressions Chest X-Ray 07/17/16 06:25 IMPRESSION: Grossly stable right basilar airspace disease. D/ / Teo Quezada MD / Teo Quezada MD Interpreting Provider: Teo Quezada MD - EKG Data EKG attestation: Yes I reviewed and interpreted this EKG. EKG shows normal: Reports: sinus rhythm, axis, intervals, QRS complexes Rate: Reports: tachycardia (135) Interpretation: Reports: no acute changes, nonspecific ST-T wave changes, other (Significant baseline artifact present.) Critical Care Time Critical Care Time: Yes Total Critical Care Time: 70 Attestation: As this patient did present with signs and symptoms of potential life- threatening illness requiring my urgent intervention, total critical care time in this patient's care has been 70 minutes, not withstanding separately reportable procedures.
[2016-07-17] MEDS ORDERED: 0.9 % Sodium Chloride 500 ML IVC ONE (06:24)
[2016-07-17] MEDS ORDERED: Ipratropium/Albuterol Neb 3 ML IH ONE (06:26)
[2016-07-17 06:31] LABS: ABG HCO3 46.3 mEQ/L (21-27); ABG PCO2 132 mmHg (35-45); ABG PH 7.15 pH Units (7.32-7.45); ABG PO2 89 mmHg (85-104)
[2016-07-17 06:32] LABS: ABG Base Excess 12.3 mEq/L (-2.0 to 3.0); ABG Oxygen Saturation 92 % (95-98); ABG TCO2 50.4 mEq/L (20-26); Blood Gas FiO2 100 %; Blood Gas Liter Flow 10 L/MIN
[2016-07-17 07:14] LABS: Basophils % 0.2 %; Eosinophils # 0.1 K/mcL (0.0-0.6); Eosinophils % 0.6 %; Hemoglobin 11.7 g/dL (12.9-16.9); Immature Granulocytes % 0.7 % (0-4); Lymphocytes # 1.3 K/mcL (0.6-4.6); Lymphocytes % 12.8 %; Mean Corpuscular Volume 96.5 fL (83.0-100.0); Mean Platelet Volume 9.3 fL (9.4-12.4); Monocytes # 0.3 K/mcL (0.0-1.3); Monocytes % 2.4 %; Neutrophils # 8.5 K/mcL (1.6-8.9); Platelet Count 274 K/mcL (140-400); Red Blood Count 4.04 M/mcL (4.19-5.50); Red Cell Distribution Width 13.8 % (11.5-14.5); Segmented Neutrophils % 83.3 %
[2016-07-17 07:26] LABS: ABG PH 7.23 pH Units (7.32-7.45)
[2016-07-17 07:27] LABS: ABG HCO3 43.9 mEQ/L (21-27); ABG PCO2 106 mmHg (35-45); ABG PO2 104 mmHg (85-104); ABG TCO2 47.2 mEq/L (20-26)
[2016-07-17 07:28] LABS: ABG Base Excess 12.1 mEq/L (-2.0 to 3.0); ABG Oxygen Saturation 96 % (95-98); Blood Gas BiPAP(E) 8 cm H2O; Blood Gas BiPAP(I) 20 cm H2O; Blood Gas FiO2 100 %; Blood Gas Respiration Rate 12
[2016-07-17 07:31] LABS: BUN/Creatinine Ratio 31 (6-26); Blood Urea Nitrogen 26 mg/dL (8-26); Calcium 9.3 mg/dL (8.6-10.8); Carbon Dioxide 39 mEq/L (19-29); Chloride 95 mEq/L (98-109); Glucose 125 mg/dL (70-99); Osmolality,Calculated 306 (280-300); Potassium 4.2 mEq/L (3.5-4.5); Sodium 145 mEq/L (136-145); eGFR For African Americans > 60 (> 60); eGFR For Non-African Americans > 60 (> 60)
[2016-07-17] MEDS ORDERED: 0.9 % Sodium Chloride 1,000 ML IVC SCH (08:26)
[2016-07-17] MEDS ORDERED: Acetaminophen 325 MG TABLET PO PRN (08:26)
[2016-07-17] MEDS ORDERED: Ondansetron 4 MG/2 ML VIAL IVP PRN (08:26)
[2016-07-17] MEDS ORDERED: Naloxone 0.4 MG/ML INJ IVP PRN (08:26)
[2016-07-17] MEDS ORDERED: *HR* LORazepam Oral Conc 2 MG/ML SL PRN (08:26)
[2016-07-17] MEDS ORDERED: MOM Conc 10 ML UD.LIQ PO PRN (08:26)
[2016-07-17] MEDS: Metoprolol XL (24 HR) Succ 25 MG TAB.ER.24H PO SCH (09:50)
[2016-07-17] MEDS: *HR* Rivaroxaban 15 MG TABLET PO SCH (09:51)
[2016-07-17] MEDS: Cholecalciferol (D-3) 1,000 UNIT TABLET PO SCH (09:54)
[2016-07-17] MEDS: Ipratropium/Albuterol Neb 3 ML IH SCH ×3 (10:02→21:20)
--- NOTE | 2016-07-17 14:49 | Electrocardiograph Report ---
[address] [address] Test Date: 2016-07-17 Pat Name: Joesph Ramirez Department: [id number] Room: [facility] Gender: Dipper And Baker: : 1945 Requested By: Marshal Hua Order Number: [id number] Reading MD: Nafisa Mosley Measurements Intervals [place] Rate: 135 P: 86 TX: 185 QRS: 80 QRSD: 77 T: 81 QT: 331 QTc: 410 Interpretive Statements SINUS TACHYCARDIA NONSPECIFIC ST \T\ T-WAVE ABNORMALITY ABNORMAL RHYTHM ECG Electronically Signed On 07-17-2016 14:47:53 EST by Nafisa Mosley
--- NOTE | 2016-07-17 15:24 | Internal Med History&Physical ---
Date of Encounter: 07/17/16 Time of Encounter: 15:05 Assessment and Plan (1) Acute and chronic respiratory failure Current visit: Yes Status: Acute He has been placed on BiPAP. Levaquin was started in the emergency room and will be continued. His [place] in regimen from the prison will be continued. He was given a dose of Solu-Medrol but this will not be continued since he does not have active bronchospasm. Qualifiers: Respiratory failure complication: hypoxia and hypercapnia Qualified Code(s) : J96.21 - Acute and chronic respiratory failure with hypoxia; J96.22 - Acute and chronic respiratory failure with hypercapnia (2) Anemia Current visit: No Status: Chronic Anemia testing done 04/19/2016 showed no obvious factor deficiency but serum iron was slightly decreased at 48. I will add ferrous sulfate with vitamin C and see if hemoglobin improves Qualifiers: Anemia type: unspecified type Qualified Code(s): D64.9 - Anemia, unspecified (3) Atrial fibrillation Current visit: No Status: Chronic Continue Xarelto Qualifiers: Atrial fibrillation type: paroxysmal Qualified Code(s): I48.0 - Paroxysmal atrial fibrillation Internal Medicine - H&P: HPI Chief complaint: Dyspnea with hypoxemia Admitted From: Long-term Nursing Facility Plans for Post Hospital Care: Transfer Prison Facility History of present illness: Mr. Ramirez is a 71 year old male who came to the hospital after he was noted to have hypoxemia at the prison. He reportedly had a low-grade fever and occasional cough. He was evaluated in the emergency room and felt to have exacerbation of COPD. He was admitted to [facility] for ongoing care needs. He was hospitalized at [facility] approximately 5 weeks ago with similar complaints. He has known severe COPD and wears oxygen 24/7 at the prison. He smoked from age [age] up to 5 packs per day. He had a tracheostomy from [id number] but it has been removed and he now wears oxygen by nasal cannula. He has a BiPAP machine at the prison for scheduled and prn use for his severe COPD. He has been seen by a pulmonologists at [facility] but is not considered a candidate for lung reduction surgery or endobronchial valves etc. I spoke with his investment banker during his recent hospitalization and we agreed he would not return to [facility]. His last chest CT was October 2014. Past Med Surg Social Fam HX - Past Medical History Medical history: atrial fibrillation, CHF, COPD, GERD, hyperlipidemia, hypertension, other Psychiatric history: anxiety - Past Surgical History Surgical History: tracheostomy - Social History Smoking Status: Former smoker Smokeless Tobacco Status: No Alcohol use: none Drug use: none - Family History Father Adopted: No Family Member Ethnicity: Non- Living Status: Hx Family Cardiac Disorders: No Hx Family Respiratory Disorders: No Hx Family Cancer: No Hx Family GI Disorders: No Hx Family Endocrine Disorder: No Hx Family Neuromuscular Disorders: No Hx Family Neurologic Disorders: No Hx Family HEENT Disorders: No Hx Family Autoimmune Disorders: No Internal Medicine - H&P: Meds Acetaminophen [Tylenol] 325 mg PO Q4HR PRN 02/27/16 [History] Albuterol Sulfate [Proair Hfa] 1 puff IH Q4H 02/27/16 [History] Rivaroxaban [Xarelto] 15 mg PO DAILY 02/27/16 [History] Sertraline [Zoloft] 100 mg PO DAILY 02/27/16 [History] Tiotropium [Spiriva] 18 mcg IH DAILY 02/27/16 [History] Albuterol Neb [Proventil Neb] 2.5 mg IH Q4HR PRN 04/18/16 [History] Cholecalciferol (Vitamin D3) [Vitamin D3] 1,000 unit PO DAILY 04/18/16 [History] Fluticasone/Salmeterol [Advair 500-50 Diskus] 1 each IH BID 04/18/16 [History] Magnesium Hydroxide [Milk of Magnesia] 30 ml PO DAILY PRN 04/18/16 [History] Multivit-Min/FA/Lycopen/Lutein [Adults 50+ Multivitamin Tablet] 1 each PO DAILY 04/18/16 [History] Alprazolam [Xanax 1 MG Tablet] 1.5 mg PO QID tablet 04/20/16 [Rx] PredniSONE 10 mg PO BIDWM 3 Days 04/20/16 [Rx] Metoprolol XL (24 HR) Succ [Toprol Xl] 25 mg PO DAILY 365 Days 06/09/16 [Rx] LORazepam Oral Conc [Ativan Oral Conc] 1 mg SL Q2HR PRN #240 mls 06/15/16 [Rx] Montelukast [Singulair] 10 mg PO DAILY #0 tablet 06/15/16 [Rx] Morphine Oral CONC [Roxanol] 10 mg PO Q2HR PRN #240 oral.syg 06/15/16 [Rx] Haloperidol 0.5 mg PO Q2H PRN 07/17/16 [History] Allergies Penicillins [PCN] Allergy (Verified 06/07/16 15:17) Anaphylaxis All Systems PM: A 10-system review of systems was performed and is negative for pertinent findings except as documented above in the HPI. Review of systems: Review of systems from his June 2016 history and physical were reviewed and revised as below. Gen. his weight has increased from 65.317 kg at the October 2014 hospitalization to 79.832 kg now Cardiovascular: He has history of hypertension, heart failure, and paroxysmal atrial fibrillation. There is no known CA DVT or pulmonary embolus. Respiratory: As per history of present illness GI: He has no known disorders of his liver gallbladder or exocrine pancreas : No history of hematuria dysuria or kidney stones Neurologic: No history of large distribution strokes or seizures Endocrine: He has hypogonadism but is not receiving treatment at this time. He has hyperlipidemia but no known thyroid disease or diabetes Hematology/oncology: He had anemia documented at the October 2014 hospitalization with workup showing no factor deficiency. He has no known internal malignancies Psychiatric: He has anxiety and depression Musk skeletal: He has DJD and osteopenia but no known gout. - Constitutional Vitals: Temp Pulse Resp BP Pulse Ox 98.4 F 108 22 132/68 96 07/17/16 14:48 07/17/16 14:48 07/17/16 14:48 07/17/16 14:48 07/17/16 14:48 Exam: Gen.: He is a well-developed well-nourished male who is lying quietly in bed. He is wearing BiPAP at this time and is not able to speak HEENT: Head is atraumatic and normocephalic. Eyes: EOMI. There is no scleral icterus. Mouth: His tongue appears dry. Neck: Supple and nontender. There is no thyromegaly or adenopathy noted. Heart: Regular without murmurs gallops or ectopics. Lungs: No wheezes or crackles are heard. Abdomen: Soft and nontender. No masses or guarding are noted. Extremities: There is no cyanosis edema or clubbing noted. Dorsalis pedis and posterior tibial pulses are trace palpable bilaterally. Neurologic: Mental status: He is able to nod to questions but does not speak. Cranial nerves: His gaze is conjugate. EOMI. Motor: He moves his arms will randomly. No further neurologic testing is attempted. Skin: Warm and dry. Internal Med - H&P Results - Labs CBC & Chem 7: 07/17/16 07:05 07/17/16 07:05
[2016-07-17] MEDS ORDERED: MethylPREDNISolone 40 MG/ML VIAL IVP SCH (18:00)
[2016-07-18] MEDS: Albuterol 2.5 MG/3 ML NEBULIZER IH PRN (01:29)
[2016-07-18] MEDS: Morphine Oral CONC 5 MG/0.25 ML ORAL.SYG PO PRN (02:59)
[2016-07-18] MEDS: Ipratropium/Albuterol Neb 3 ML IH SCH ×4 (04:21→23:03)
[2016-07-18] MEDS ORDERED: Ascorbic Acid 500 MG TABLET PO SCH ×2 (06:30→08:00)
[2016-07-18 07:21] LABS: Hematocrit 35.1 % (37.5-50.1); Hemoglobin 10.5 g/dL (12.9-16.9); Mean Corpuscular HGB Conc 29.9 g/dL (31.6-35.5); Mean Corpuscular Hemoglobin 29.2 pg (28.0-33.3); Mean Corpuscular Volume 97.5 fL (83.0-100.0); Mean Platelet Volume 9.7 fL (9.4-12.4); Nucleated Red Blood Cells 0.1 /100 WBC (0); Platelet Count 217 K/mcL (140-400); Red Cell Distribution Width 13.8 % (11.5-14.5)
[2016-07-18 07:42] LABS: ABG PH 7.27 pH Units (7.32-7.45)
[2016-07-18 07:45] LABS: ABG HCO3 40.6 mEQ/L (21-27); ABG PCO2 89 mmHg (35-45); ABG PO2 79 mmHg (85-104)
[2016-07-18 07:46] LABS: ABG Base Excess 10.6 mEq/L (-2.0 to 3.0); ABG Oxygen Saturation 92 % (95-98); ABG TCO2 43.3 mEq/L (20-26); Blood Gas BiPAP(E) 8 cm H2O; Blood Gas BiPAP(I) 18 cm H2O; Blood Gas FiO2 46 %; Blood Gas Respiration Rate 12
[2016-07-18] MEDS: Cholecalciferol (D-3) 1,000 UNIT TABLET PO SCH (09:59)
[2016-07-18] MEDS: *HR* Rivaroxaban 15 MG TABLET PO SCH (10:00)
[2016-07-18] MEDS: Metoprolol XL (24 HR) Succ 25 MG TAB.ER.24H PO SCH (10:00)
[2016-07-18 10:29] LABS: Lymphocytes # 1.5 K/mcL (0.6-4.6); Monocytes # 0.6 K/mcL (0.0-1.3); Neutrophils # 11.3 K/mcL (1.6-8.9)
[2016-07-18 10:30] LABS: Platelet Estimate Normal (Normal)
[2016-07-19] MEDS: Albuterol 2.5 MG/3 ML NEBULIZER IH PRN (01:41)
[2016-07-19] MEDS: Ipratropium/Albuterol Neb 3 ML IH SCH ×2 (04:36→10:47)
[2016-07-19] MEDS: Morphine Oral CONC 5 MG/0.25 ML ORAL.SYG PO PRN (06:20)
[2016-07-19] MEDS ORDERED: Ascorbic Acid 500 MG TABLET PO SCH (06:30)
[2016-07-19] MEDS: *HR* Rivaroxaban 15 MG TABLET PO SCH (08:39)
[2016-07-19] MEDS: Cholecalciferol (D-3) 1,000 UNIT TABLET PO SCH (08:39)
[2016-07-19] MEDS: Metoprolol XL (24 HR) Succ 25 MG TAB.ER.24H PO SCH (08:39)
--- NOTE | 2016-07-19 09:26 | Internal Med Progress Note ---
Date of Encounter: 07/18/16 Time of Encounter: 10:00 - Assessment and plan (1) Acute and chronic respiratory failure Current Visit: Yes Status: Acute Assessment and plan: July 18. I will contact [facility] about transfer for trach placement Qualifiers: Respiratory failure complication: hypoxia and hypercapnia Qualified Code(s) : J96.21 - Acute and chronic respiratory failure with hypoxia; J96.22 - Acute and chronic respiratory failure with hypercapnia (2) Anemia Current Visit: No Status: Chronic Assessment and plan: July 18. Continue ferrous sulfate and vitamin C Qualifiers: Anemia type: unspecified type Qualified Code(s): D64.9 - Anemia, unspecified (3) Atrial fibrillation Current Visit: No Status: Chronic Assessment and plan: July 18. Continue Xarelto Qualifiers: Atrial fibrillation type: paroxysmal Qualified Code(s): I48.0 - Paroxysmal atrial fibrillation - Subjective Interval history: July 18. He has no new complaints. He wishes to be transferred to either [facility] or [facility] for consideration for tracheostomy placement since he feels he is having worsening respiratory decline over the past few months - Constitutional Vitals: Temp Pulse Resp BP Pulse Ox 98.9 F 110 20 115/67 97 07/19/16 06:54 07/19/16 04:55 07/19/16 06:54 07/19/16 06:54 07/19/16 06:54 Exam: He is lying in bed wearing BiPAP. He is alert and able to correspond by nodding and attempting to verbalize. Reviewed his medications and lab results. Internal Medicine: Result - Labs CBC & Chem 7: 07/18/16 07:05 07/17/16 07:05 Labs: Short CBC 07/18/16 Range/Units 07:05 WBC 14.8 H (4.3-11.1) K/mcL Hgb 10.5 L (12.9-16.9) g/dL Hct 35.1 L (37.5-50.1) % Plt Count 217 (140-400) K/mcL Neutrophils # 11.3 H (1.6-8.9) K/mcL - ABG Interpretation ABG results: ABG ABG pH 7.27 pH Units (7.32-7.45) L 07/18/16 07:34 ABG pCO2 89 mmHg (35-45) H* 07/18/16 07:34 ABG pO2 79 mmHg (85-104) L 07/18/16 07:34 ABG O2 Saturation 92 % (95-98) L 07/18/16 07:34 - VTE Documentation of Mechanical Device: Graduated compression elastic hosiery Consult Discharge Plan - Plan Referrals: Osvaldo Khanna MD [Primary Care Provider] - 1 week
[2016-07-19] MEDS ORDERED: Aztreonam 1,000 MG in D5% in Water (Mini-Bag+) 100 ML IVPB SCH (10:11)
[2016-07-19] MEDS ORDERED: Doxycycline 100 MG in 0.9 % Sodium Chloride Mini Bag 100 ML IVPB SCH (10:11)
--- NOTE | 2016-07-19 10:15 | Discharge Summary ---
Date of Encounter: 07/19/16 Time of Encounter: 09:30 - Discharge Diagnosis (1) Acute and chronic respiratory failure Priority: Primary Status: Acute Qualifiers: Respiratory failure complication: hypoxia and hypercapnia Qualified Code(s) : J96.21 - Acute and chronic respiratory failure with hypoxia; J96.22 - Acute and chronic respiratory failure with hypercapnia (2) Anemia Priority: Secondary Status: Chronic Qualifiers: Anemia type: unspecified type Qualified Code(s): D64.9 - Anemia, unspecified (3) Atrial fibrillation Priority: Secondary Status: Chronic Qualifiers: Atrial fibrillation type: paroxysmal Qualified Code(s): I48.0 - Paroxysmal atrial fibrillation - Discharge Medications Prescriptions: Aztreonam [Azactam] 1,000 mg IVPB Q8HR 7 Days Doxycycline 100 mg IVPB Q12HR 7 Days Home Medications: Acetaminophen [Tylenol] 325 mg PO Q4HR PRN 02/27/16 [History] Albuterol Sulfate [Proair Hfa] 1 puff IH Q4H 02/27/16 [History] Rivaroxaban [Xarelto] 15 mg PO DAILY 02/27/16 [History] Sertraline [Zoloft] 100 mg PO DAILY 02/27/16 [History] Tiotropium [Spiriva] 18 mcg IH DAILY 02/27/16 [History] Albuterol Neb [Proventil Neb] 2.5 mg IH Q4HR PRN 04/18/16 [History] Cholecalciferol (Vitamin D3) [Vitamin D3] 1,000 unit PO DAILY 04/18/16 [History] Fluticasone/Salmeterol [Advair 500-50 Diskus] 1 each IH BID 04/18/16 [History] Magnesium Hydroxide [Milk of Magnesia] 30 ml PO DAILY PRN 04/18/16 [History] Multivit-Min/FA/Lycopen/Lutein [Adults 50+ Multivitamin Tablet] 1 each PO DAILY 04/18/16 [History] Alprazolam [Xanax 1 MG Tablet] 1.5 mg PO QID tablet 04/20/16 [Rx] PredniSONE 10 mg PO BIDWM 3 Days 04/20/16 [Rx] Metoprolol XL (24 HR) Succ [Toprol Xl] 25 mg PO DAILY 365 Days 06/09/16 [Rx] LORazepam Oral Conc [Ativan Oral Conc] 1 mg SL Q2HR PRN #240 mls 06/15/16 [Rx] Montelukast [Singulair] 10 mg PO DAILY #0 tablet 06/15/16 [Rx] Morphine Oral CONC [Roxanol] 10 mg PO Q2HR PRN #240 oral.syg 06/15/16 [Rx] Haloperidol 0.5 mg PO Q2H PRN 07/17/16 [History] Ascorbic Acid [Vitamin C] 500 mg PO 0630 #0 tablet 07/19/16 [Rx] Aztreonam [Azactam] 1,000 mg IVPB Q8HR 7 Days 07/19/16 [Rx] Doxycycline 100 mg IVPB Q12HR 7 Days 07/19/16 [Rx] Ferrous Sulfate 325 mg PO 0630 tablet 07/19/16 [Rx] Allergies/Adverse Reactions: Allergies Penicillins [PCN] Allergy (Verified 06/07/16 15:17) Anaphylaxis Date of admission: 07/17/16 07:45 Primary care physician: Osvaldo Khanna MD Consults: 07/17/16 08:52 Consult to Nutrition [CONS] Routine Comment: Consulting Provider: NUTRITION Reason for Dietary Consult: MST Score - Patient Status Disposition: Transfer Short-Term Hosp Functional capacity at discharge: bed bound - Discharge Instructions Follow Up With: Osvaldo Khanna MD [Primary Care Provider] - 1 week Hospital course: Mr. Ramirez is a 71 year old male who came to the hospital after he was noted to have hypoxemia at the half-way. He reportedly had a low-grade fever and occasional cough. He was evaluated in the emergency room and felt to have exacerbation of COPD. He was admitted to [facility] for ongoing care needs. He was hospitalized at [facility] approximately 5 weeks ago with similar complaints. He has known severe COPD and wears oxygen 24/7 at the half-way. He smoked from age [age] up to 5 packs per day. He had a tracheostomy from [id number] but it has been removed and he now wears oxygen by nasal cannula. He has a BiPAP machine at the half-way for scheduled and prn use for his severe COPD. He has been seen by a pulmonologists at [facility] but is not considered a candidate for lung reduction surgery or endobronchial valves etc. 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 His last chest CT was October 2014. Initial orders were written by the emergency room physician. I saw him on July 17 and performed the history and physical. He was started on IV Levaquin and BiPAP was continued. He was given Solu-Medrol in the emergency room but I changed him to oral prednisone. He returned to his baseline mental status first hospital day and had improved follow-up blood gas. I spoke to him on July 18 and he stated he wished to be transferred to [facility] or [facility] for consideration for tracheostomy. I called [facility] and they reported he would be placed on a transfer waiting list. No beds became available on July 18. I spoke with [facility] again on July 19 and they did not feel it was likely a bed would become available that day either. I then spoke with [facility] and he was accepted in transfer. - Time Spent with Patient Total time spent providing and/or coordinating discharge services: - Constitutional Vitals: Temp Pulse Resp BP Pulse Ox 98.9 F 110 20 115/67 97 07/19/16 06:54 07/19/16 04:55 07/19/16 06:54 07/19/16 06:54 07/19/16 06:54 - VTE Documentation of Mechanical Device: Graduated compression elastic hosiery
[2016-07-19 11:19] VITALS: BP 118/65
== END 2016-07-19 11:46 | disposition short-term general hospital (02) | DRG 189 ==
LOC: EMEROOPIK 06:13 → INPPIK 07:45
PROVIDERS: ADMIT Internal Medicine; ATTEND Internal Medicine